=== PATIENT | female | born 1970 | race Caucasian/White ===

== ENCOUNTER → 2016-09-19 | Day surgery (SDC) | payer OTHER ==
[~2016-09-19] MED LIST: ACETAMINOPHEN 325 MG TAB ONE; DEXAMETHASONE SOD PHOS 4 MG/ML VIAL ONE; EPINEPHrine HCL (1:1000) 1 MG/ML VIAL ONE; LACTATED RINGER'S 1000 ML INJ 1,000 ML ONE; MIDAZOLAM HCL 2 MG/2 ML VIAL ONE; MOXIFLOXACIN 0.5% OPHT SOLN 3 ML BTL ONE; ONDANSETRON HCL 4 MG/2 ML VIAL IV PUSH ONE; PHENYLEPHRINE HCL 10% OPTH SOLN 5 ML BTL ONE; PROPOFOL 200 MG/20 ML AMP IV ONE; SODIUM CHLORIDE 0.9% INJ 10 ML ONE; TETRACAINE 0.5% OPTH SOLN 4 ML BTL ONE; ceFAZolin INJ 1,000 MG VIAL ONE; prednisoLONE ACETATE 1% OPHT SUSP 5 ML BTL ONE
--- NOTE | 2016-09-23 17:21 | MP ---
cc: ETIENNE MEJIA MD DATE OF SURGERY 09/23/16 PREOPERATIVE DIAGNOSIS Vitreous hemorrhage, proliferative diabetic retinopathy, retinal tear, retinal detachment, left eye. POSTOPERATIVE DIAGNOSIS Vitreous hemorrhage, proliferative diabetic retinopathy, retinal tear, retinal detachment, left eye. PROCEDURE Pars vitrectomy, endolaser, retinal detachment repair, insertion of 15% SF6 gas, left eye. COMPLICATIONS None. BLOOD LOSS Less than [address] Campo, general INDICATIONS FOR PROCEDURE This is a delightful patient with a long history of diabetes, diabetic retinopathy, presented with non clearin vitreous hemorrhage of her left eye. The patient elected for surgical correction when she was medically able. PROCEDURE NOTE After informed consent was obtained, the patient was brought to the operating room. General anesthesia was established. The left eye was prepped and draped in sterile fashion with Betadine in the conjunctival fornix. A deep port pars vitrectomy was established with self-retaining infusion cannula. Core vitreous and vitreous hemorrhage was evacuated. Vitreous traction to the posterior segment was relieved. A retinal tear and detachment were noted. Air-fluid exchange was carried out and retina reattached with removal of the subretinal fluid. Endolaser was applied surrounding retinal tear and in PRP fashion. Scleral depressed examination revealed no untreated retinal holes, tears or detachments. 15% SF6 gas was instilled. Trocars removed and sclerotomies closed. Subconjunctival injection of dexamethasone was given. The eye was patched with Tobramycin ointment. The patient was brought to recovery room in stable condition. Continue followup with [facility] for her postoperative care. Etienne Mejia MD KW/CASSIDY /10:51 PM /5:10 PM KAMILA
== END | disposition home or self-care (01) ==
LOC: ESDC 09:16
PROVIDERS: ATTEND Ophthalmology
DX: H43.12 Vitreous hemorrhage, left eye (principal); E11.3522 Type 2 diabetes mellitus with proliferative diabetic retinopathy with traction retinal detachment involving the macula, left eye; H33.312 Horseshoe tear of retina without detachment, left eye
CPT/HCPCS: 00145; 67108; 82948; J0171; J0690; J1100; J2250; J2405; J3010; J7120